=== PATIENT | male | born 1980 | race American Indian/Alaskan Native ===

== ENCOUNTER 2018-07-16 23:53 | Emergency (ER) | payer SELFPAY ==
[2018-07-17 02:11] VITALS: BP 126/79
[2018-07-17] MEDS ORDERED: DUONEB *Not for PRN Use IH ONE (02:35)
[2018-07-17 03:30] LABS: Bacteria,Urine 1+ /HPF (Negative); Bilirubin,Urine NEG (Negative); Blood,Urine NEG (Negative); Color,Urine Yellow (Yellow); Protein,Urine <15 mg/dL mg/dL (Negative)
--- NOTE | 2018-07-17 04:20 | Emergency Department Report ---
ED Male HPI - General Chief complaint: Urogenital-Male Stated complaint: TESTICLE SWOLLEN Time Seen by Provider: 07/17/18 03:20 Source: patient Mode of arrival: Ambulatory Limitations: No Limitations - History of Present Illness Initial comments: Left testicular pain for 3-4 days pain is 3 out of 10 since by palpation and movement there is no nausea vomiting no fever chills no penile discharge patient is Complaint: testicle pain, testicle swelling (left testicle ) Onset/Timin -: days(s) Location: left testicle Radiation: none Severity: moderate Severity scale (0 -10): 4 Quality: sharp Consistency: intermittent Improves with: none Worsens with: movement new medication - Related Data Sexually active: Yes Previous Rx's Medication Instructions Recorded Last Taken Type levoFLOXacin [Levaquin TAB] 500 mg PO DAILY #10 tablet 07/17/18 Unknown Rx Allergies Allergy/AdvReac Type Severity Reaction Status Date / Time No Known Allergies Allergy Verified 07/17/18 03:19 ED Review of Systems ROS: Stated complaint: TESTICLE SWOLLEN Other details as noted in HPI Constitutional: denies: chills, fever Eyes: denies: eye pain, eye discharge, vision change ENT: denies: ear pain, throat pain Respiratory: denies: cough, shortness of breath, wheezing Cardiovascular: denies: chest pain, palpitations Endocrine: no symptoms reported Gastrointestinal: denies: abdominal pain, nausea, diarrhea Genitourinary: testicular pain Musculoskeletal: denies: back pain, joint swelling, arthralgia Skin: denies: rash, lesions Neurological: denies: headache, weakness, paresthesias Psychiatric: denies: anxiety, depression Hematological/Lymphatic: denies: easy bleeding, easy bruising ED Past Medical Hx - Past Medical History Previous Medical History?: No - Social History Smoking Status: Current Every Day Smoker - Medications Home Medications: Home Medications Medication Instructions Recorded Confirmed Last Taken Type levoFLOXacin [Levaquin TAB] 500 mg PO DAILY #10 tablet 07/17/18 Unknown Rx ED Physical Exam - General Limitations: No Limitations General appearance: alert, in no apparent distress - Head Head exam: Present: atraumatic, normocephalic - Eye Eye exam: Present: normal appearance - ENT ENT exam: Present: mucous membranes moist - Neck Neck exam: Present: normal inspection - Respiratory Respiratory exam: Present: normal lung sounds bilaterally. Absent: respiratory distress - Cardiovascular Cardiovascular Exam: Present: regular rate, normal rhythm. Absent: systolic murmur, diastolic murmur, rubs, gallop - GI/Abdominal GI/Abdominal exam: Present: soft, normal bowel sounds - Rectal Rectal exam: Present: deferred - exam: Present: testicular tenderness, circumcision, other (epididymis prominent left ). Absent: urethral discharge External exam: Absent: erythema, swelling, lesions, lacerations, ecchymosis, bleeding - Extremities Exam Extremities exam: Present: normal inspection - Back Exam Back exam: Present: normal inspection - Neurological Exam Neurological exam: Present: alert, oriented X3 - Psychiatric Psychiatric exam: Present: normal affect, normal mood - Skin Skin exam: Present: warm, dry, intact, normal color. Absent: rash ED Course Vital Signs 07/17/18 07/17/18 02:00 03:03 Temperature 98.5 F 98.5 F Pulse Rate 65 69 Respiratory 18 20 Rate Blood Pressure 126/79 126/79 O2 Sat by Pulse 100 99 Oximetry ED Medical Decision Making - Radiology Data Radiology results: report reviewed, image reviewed Confirms epididymitis no testicular torsion - Medical Decision Making This is left-sided epididymitis patient is Y patient's with patient is no penile discharge on pain the left testicle with movement and palpation plan treat with Levaquin by mouth daily 10 days patient and verbalized agreement and understanding the treatment plan patient to DC to home at this time in stable condition with follow-up with PCP in 2-3 days Critical care attestation.: If time is entered above; I have spent that time in minutes in the direct care of this critically ill patient, excluding procedure time. ED Disposition Clinical Impression: Epididymitis Disposition: DC-01 TO HOME OR SELFCARE Is pt being admited?: No Does the pt Need Aspirin: No Condition: Good Instructions: Epididymitis (ED) Prescriptions: levoFLOXacin [Levaquin TAB] 500 mg PO DAILY #10 tablet Referrals: PRIMARY CARE, [Primary Care Provider] - 3-5 Days Forms: Work/School Release Form(ED) Time of Disposition: 04:55
--- NOTE | 2018-07-17 04:20 | Ultrasound Report ---
FINAL REPORT EXAM: US TESTICULAR DOPPLER COMP HISTORY: swollen left testicle COMPARISONS: None FINDINGS: Grayscale, color and spectral Doppler ultrasound evaluation of the testicles The right testicle measures 4.5 x 2.2 x 3.1 cm and demonstrates normal echotexture and color and spectral Doppler evaluation. The epididymis is within normal limits. No intra or extratesticular mass. The left testicle measures 4.2 x 2.1 x 3.8 cm and demonstrates normal echotexture and color and spectral Doppler evaluation. The epididymis is enlarged and hyperemic. A small left hydrocele is present. No varicocele identified. IMPRESSION: Left epididymitis. Follow-up to resolution is suggested. Normal appearing left testicle. No evidence of orchitis or abscess at this time.
== END 2018-07-17 05:23 | disposition home or self-care (01) ==
LOC: ED 23:53
DX: N45.1 Epididymitis (principal); F17.200 Nicotine dependence, unspecified, uncomplicated
CPT/HCPCS: 81001; 93975

== ENCOUNTER 2019-01-26 04:56 | Emergency (ER) | payer OTHER ==
[2019-01-26 05:53] LABS: Bilirubin,Urine NEG (Negative); Blood,Urine NEG (Negative); Color,Urine Straw (Yellow); Protein,Urine <15 mg/dL mg/dL (Negative); Urobilinogen,Urine < 2.0 mg/dL (<2.0)
--- NOTE | 2019-01-26 07:17 | Ultrasound Report ---
PROCEDURE: US TESTICULAR DOPPLER COMP TECHNIQUE: Routine sonographic evaluation was obtained of the scrotum with Doppler interrogation of the testicles. HISTORY: left testicle lump and pain COMPARISONS: 07/17/2018 FINDINGS: The right testicle is normal in size contour blood flow and echotexture measuring 3.8 x 2.0 x 3.4 cm. The right epididymis is normal in size contour and echotexture measuring 1.0 x 0.6 x 1.0 cm. There i s a small right-sided hydrocele. The blood flow is normal to the right testicle. The left testicle is normal in size contour blood flow and echotexture measuring 4.4 x 2.3 x 4.0 cm. The left epididymis is mildly enlarged measuring 1.6 x 1.4 x 2.1 cm. Left epididymitis cannot be excl uded. There is no evidence of left-sided hydrocele. A varicocele is not seen. IMPRESSION: Small right-sided hydrocele. No evidence of testicular neoplasia or torsion. Mild enlargement of the left epididymis. Mild left epididymitis cannot be excluded.. This document is electronically signed by Mati Chan MD., January 26 2019 07:15:05 AM ET
--- NOTE | 2019-01-26 07:34 | Emergency Department Report ---
ED Male HPI - General Chief complaint: Urogenital-Male Stated complaint: SWELLING TESTICLES Time Seen by Provider: 01/26/19 07:34 Source: patient, family Mode of arrival: Ambulatory Limitations: No Limitations - History of Present Illness Initial comments: This is a 38-year-old male here complainin that there is something in his left testicle 1 week and it is getting bigger. He said outside of his testicle is normal but inside he can feels a knot. Pain is 0-10. Denies any urinary burning, frequency or urgency. Denies any concern for STD or any penile discharge or burning. Denies any nausea or vomiting or abdominal pain. Denies any groin pain. Denies any back pain. Denies any fever or chills. MD Complaint: other (knot in left testicle) Onset/Timin -: week(s) Location: left testicle Severity scale (0 -10): 0 mass. denies: discharge, swelling, rash, urinary retention, blood in urine, dysuria, fever, nausea/vomiting, incontinence - Related Data Sexually active: Yes Previous Rx's Medication Instructions Recorded Last Taken Type levoFLOXacin [Levaquin TAB] 500 mg PO DAILY #10 tablet 07/17/18 Unknown Rx cephALEXin [Keflex] 500 mg PO Q8HR 7 Days #21 cap 01/26/19 Unknown Rx Allergies Allergy/AdvReac Type Severity Reaction Status Date / Time No Known Allergies Allergy Verified 07/17/18 03:19 ED Review of Systems ROS: Stated complaint: SWELLING TESTICLES Other details as noted in HPI Constitutional: denies: chills, fever Respiratory: denies: cough, shortness of breath, wheezing Cardiovascular: denies: chest pain, palpitations, dyspnea on exertion, edema, syncope Gastrointestinal: denies: abdominal pain, nausea, vomiting, diarrhea, constipation, hematemesis, hematochezia Genitourinary: testicular mass. denies: urgency, dysuria, frequency, hematuria, discharge, testicular pain Musculoskeletal: denies: back pain, joint swelling, arthralgia, myalgia Skin: denies: rash Neurological: denies: headache ED Past Medical Hx - Past Medical History Previous Medical History?: No - Surgical History Past Surgical History?: No - Family History Family history: hypertension - Social History Smoking Status: Current Every Day Smoker Substance Use Type: None - Medications Home Medications: Home Medications Medication Instructions Recorded Confirmed Last Taken Type levoFLOXacin [Levaquin TAB] 500 mg PO DAILY #10 tablet 07/17/18 Unknown Rx cephALEXin [Keflex] 500 mg PO Q8HR 7 Days #21 cap 01/26/19 Unknown Rx ED Physical Exam - General Limitations: No Limitations General appearance: alert, in no apparent distress - Head Head exam: Present: atraumatic, normocephalic, normal inspection - Eye Eye exam: Present: normal appearance, PERRL, EOMI - ENT ENT exam: Present: normal exam, normal orophraynx, mucous membranes moist - Neck Neck exam: Present: normal inspection, full ROM. Absent: tenderness, lymphadenopathy - Respiratory Respiratory exam: Present: normal lung sounds bilaterally. Absent: respiratory distress - Cardiovascular Cardiovascular Exam: Present: regular rate, normal rhythm, normal heart sounds - GI/Abdominal GI/Abdominal exam: Present: soft, normal bowel sounds. Absent: distended, tenderness, guarding, rebound, rigid, organomegaly, mass, bruit - exam: Present: normal inspection. Absent: testicular tenderness, urethral discharge - Expanded Exam Expanded Male exam: Absent: phimosis, paraphimosis, penile swelling, lesions, induration, erythema, perineal induration, balanitis, priapism exam: Testicular Mass: Left (nontender to palpate, 1 cm bilaterally and mobile), Cremasteric Reflex Present: Left, Right - Extremities Exam Extremities exam: Present: normal inspection, full ROM, normal capillary refill, other (No cce. + 2 pulses in all extremities, no neurovascular compromise). Absent: tenderness, pedal edema, joint swelling, calf tenderness - Back Exam Back exam: Present: normal inspection, full ROM. Absent: CVA tenderness (R), CVA tenderness (L) - Neurological Exam Neurological exam: Present: alert, oriented X3, normal gait - Psychiatric Psychiatric exam: Present: normal affect, normal mood - Skin Skin exam: Present: warm, dry, intact, normal color. Absent: rash ED Course Vital Signs 01/26/19 05:12 Temperature 97.7 F Pulse Rate 69 Respiratory 16 Rate Blood Pressure 130/86 O2 Sat by Pulse 99 Oximetry - Reevaluation(s) Reevaluation #1: 01/26/19 09:09 Patient urinary tract infection and ultrasound were reflects left hydrocele. I discussed this with patient. He is not having any pain. He is also given handout on hydrocele and I told to follow up with his primary care physician and urologist if this persists. Patient was given Rocephin 250 mg IM emergency room and para treatments for STD although he said he was not having any penile drainage ultrasound did mention that he has epididymal enlargement but external testicular swelling or erythema noted. ED Medical Decision Making - Lab Data Lab Results 01/26/19 Range/Units Unknown Urine Color Straw (Yellow) Urine Turbidity Hazy (Clear) Urine pH 6.0 (5.0-7.0) Ur Specific [place] 1.005 (1.003-1.030) Urine Protein <15 mg/dl (Negative) mg/dL Urine Glucose (UA) Neg (Negative) mg/dL Urine Ketones Neg (Negative) mg/dL Urine Blood Neg (Negative) Urine Nitrite Neg (Negative) Urine Bilirubin Neg (Negative) Urine Urobilinogen < 2.0 (<2.0) mg/dL Ur Leukocyte Esterase Mod (Negative) Urine WBC (Auto) 28.0 H (0.0-6.0) /HPF Urine RBC (Auto) 4.0 (0.0-6.0) /HPF U Epithel Cells (Auto) < 1.0 (0-13.0) /HPF Urine cultures and - Radiology Data Radiology results: report reviewed Testicular Doppler ultrasound done. This was dictated by radiologist and report reviewed by myself. Findings [facility] [address] [place] [address] Ultrasound Report Signed Patient: ENRICO NEWBY MR#: [id number] : 1980 Acct:[id number] Age/Sex: 38 / M ADM Date: 01/26/19 Loc: ED Attending Dr: Ordering Physician: DALI AGUILAR MD Date of Service: 01/26/19 Procedure(s): US testicular doppler comp Accession Number(s): [id number] cc: DALI AGUILAR MD PROCEDURE: US TESTICULAR DOPPLER COMP TECHNIQUE: Routine sonographic evaluation was obtained of the scrotum with Doppler interrogation of the testicles. HISTORY: left testicle lump and pain COMPARISONS: 07/17/2018 FINDINGS: The right testicle is normal in size contour blood flow and echotexture measuring 3.8 x 2.0 x 3.4 cm. The right epididymis is normal in size contour and echotexture measuring 1.0 x 0.6 x 1.0 cm. There is a small right-sided hydrocele. The blood flow is normal to the right testicle. The left testicle is normal in size contour blood flow and echotexture measuring 4.4 x 2.3 x 4.0 cm. The left epididymis is mildly enlarged measuring 1.6 x 1.4 x 2.1 cm. Left epididymitis cannot be excluded. There is no evidence of left-sided hydrocele. A varicocele is not seen. IMPRESSION: Small right-sided hydrocele. No evidence of testicular neoplasia or torsion. Mild enlargement of the left epididymis. Mild left epididymitis cannot be ex cluded.. This document is electronically signed by Rick Chan MD., January 26 2019 07:15:05 AM ET Transcribed By: IMTIAZ Dictated By: RICK CHAN MD Electronically Authenticated By: RICK CHAN MD Signed Date/Time: 01/26/19716 DD/ [id number] - Medical Decision Making This is a 38-year-old male came in with left testicular abnormality. Physical exam with palpation of left testicular mass. Ultrasound shows Small right-sided hydrocele. No evidence of testicular neoplasia or torsion. Mild enlargement of the left epididymis. Mild left epididymitis cannot be excluded.. Patient given Rocephin 250 mg I am emergency room empirically and will be sent home on ciprofloxacin. He also has a small UTI so I will send him home on Keflex. I discussed this with patient and he voiced understanding of treatment plan and I gave him handouts on hydrocele. Patient discharged home in stable condition with his family to follow up with urologist and his primary care doctor. - Differential Diagnosis testicular mass benign versus malignant, hydrocele, cystocele, STD, UTI Critical care attestation.: If time is entered above; I have spent that time in minutes in the direct care of this critically ill patient, excluding procedure time. ED Disposition Clinical Impression: Left hydrocele, Epididymal thickening, Acute cystitis without hematuria Disposition: - TO HOME OR SELFCARE Is pt being admited?: No Does the pt Need Aspirin: No Condition: Stable Instructions: Hydrocele (ED), Urinary Tract Infection in Men (ED) Additional Instructions: Practice safe sex Increase fluid intake Take medication as prescribed Follow-up as instructed Referrals: ROSITA RODRIGUEZ MD [Primary Care Provider] - 2-3 Days [facility] [Provider Group] - 2-3 Days Forms: Work/School Release Form(ED), Accompanied Note
[2019-01-26] MEDS ORDERED: XYLOCAINE 1% MPF 5 mL INFILTRATI ONE (08:36)
[2019-01-26] MEDS ORDERED: ROCEPHIN IM ONE (08:36)
[2019-01-26 09:30] VITALS: BP 125/87
== END 2019-01-26 09:30 | disposition home or self-care (01) ==
LOC: ED 04:56
DX: N43.3 Hydrocele, unspecified (principal); N30.00 Acute cystitis without hematuria; N50.89 Other specified disorders of the male genital organs
CPT/HCPCS: 81001; 87086; 93975; 96372; 99284; J0696

== ENCOUNTER 2021-12-01 19:26 | Emergency (ER) | payer SELFPAY ==
[2021-12-01 21:19] VITALS: BP 140/73
--- NOTE | 2021-12-01 21:49 | Emergency Department Report ---
Eye Injury/Foreign Body - HPI Duration: 2 Days Eye Location: Left Severity: Mild Tetanus Status: Up to Date Eye Symptoms: Eye Pain: Yes, Eye Redness: Yes (redness to eye for 2 days with mild puffyness. and irritation with blinking. no fb or trauma noted), Grinding/Hammering Metal: No, Used Eye Protection: No, Contact Lens Use: No, Recalls Injury: No, Photophobia: No ED Review of Systems ROS: Stated complaint: PINK EYE Other details as noted in HPI Comment: All other systems reviewed and negative ED Past Medical Hx - Past Medical History Previous Medical History?: No - Surgical History Past Surgical History?: No - Social History Smoking Status: Current Every Day Smoker Substance Use Type: None - Medications Home Medications: Home Medications Medication Instructions Recorded Confirmed Last Taken Type levoFLOXacin [Levaquin TAB] 500 mg PO DAILY #10 tablet 07/17/18 12/01/21 Unknown Rx cephALEXin [Keflex] 500 mg PO Q8HR 7 Days #21 cap 01/26/19 12/01/21 Unknown Rx Gentamicin 0.3% Ophth Soln 1 drops OS Q4H #1 bottle 12/01/21 Unknown Rx Olopatadine HCl [Pataday] 5 drops OS BID #1 bottle 12/01/21 Unknown Rx Eye Injury Exam - Exam General: Vital signs noted. No distress. Alert and acting appropriately. ED Course Vital Signs 12/01/21 12/01/21 20:06 21:18 Temperature 98.6 F 98.6 F Pulse Rate 68 81 Respiratory 18 18 Rate Blood Pressure 154/91 Blood Pressure 140/73 [Left] O2 Sat by Pulse 96 99 Oximetry Critical care attestation.: If time is entered above; I have spent that time in minutes in the direct care of this critically ill patient, excluding procedure time. ED Disposition Clinical Impression: Red eye Disposition: 01 HOME / SELF CARE / HOMELESS Is pt being admited?: No Does the pt Need Aspirin: No Condition: Stable Instructions: Allergic Conjunctivitis, Pediatric, Chemical Conjunctivitis, Adult, Bacterial Conjunctivitis, Adult Prescriptions: Gentamicin 0.3% Ophth Soln 1 drops OS Q4H #1 bottle Olopatadine HCl [Pataday] 5 drops OS BID #1 bottle Referrals: ROSITA RODRIGUEZ MD [Primary Care Provider] - 3-5 Days ED Eye Prob EXAM - General General appearance: alert Limitations: No Limitations Head exam: Positive: atraumatic Eyelids: Erythema: Left Pupils: Regular, Round: Bilateral, Reactive: Bilateral Sclera: Normal Inspection: Right, Injection: Left Anterior chamber: Normal Inspection: Left Posterior chamber: Normal Inspection: Bilateral ENT exam: Positive: normal exam Neck exam: Positive: normal inspection Respiratory exam: Positive: normal lung sounds bilaterally Cardiovascular Exam: Positive: regular rate Extremities exam: Positive: normal inspection Back exam: normal inspection
== END 2021-12-01 22:39 | disposition home or self-care (01) ==
LOC: ED 19:26
DX: H57.89 Other specified disorders of eye and adnexa (principal); F17.200 Nicotine dependence, unspecified, uncomplicated
CPT/HCPCS: 99282